=== PATIENT | female | born 1945 | race Two or more races ===

== ENCOUNTER 2019-09-28 14:57 | Emergency (ER) | payer MEDICARE, OTHER ==
[~2019-09-28] VITALS: Ht 157.5 cm; Wt 68.5 kg
[2019-09-28 15:12] VITALS: BP 165/76
--- NOTE | 2019-09-28 15:43 | NUR ---
PT AAOX4. AMBULATORY. PT c/o cough x 2 days, afebrile. MD AT BEDSIDE. PLACED ON MONITOR AND PULSE OX.
== END 2019-09-28 15:57 | disposition home or self-care (01) ==
LOC: ER 15:14
DX: J11.1 Influenza due to unidentified influenza virus with other respiratory manifestations (principal); I10 Essential (primary) hypertension; E11.9 Type 2 diabetes mellitus without complications; Z60.2 Problems related to living alone